=== PATIENT | female | born 1955 | race Caucasian/White ===

== ENCOUNTER → 2016-07-30 | Outpatient (CLI) | payer BC ==
[2016-07-30 16:05] VITALS: BP 111/69; PULSE 77; RESP 16; TEMP 97.7; BMI 30.9
--- NOTE | 2016-07-30 16:51 | P.HPBAR ---
Bariatric H&P - History & Physicial H&P Date: 07/30/16 History & Physicial: Visit/CC: lap band Patient initial contact: Initial weight: Initial weight in pounds: Height: 5 ft Initial BMI: Last weight: Current weight: 71.849 kg Current weight in pounds: 158.40 Current BMI: 30.9 [place] body weight (based on NIH guidelines): 45.359 kg Excess body weight loss: The patient is a 61 year-old F who presents for Bariatric Assessment. Patient presents today for LAP-BAND follow-up. He has LAP-BAND performed proximal 15 years ago. He has not been seen several years. The patient is traveling to [place] and wished to have his LAP-BAND emptied for his vacation. Past Medical History Past Medical History: Hypertension History of Any Multi-Drug Resistant Organisms: None Reported Past Surgical History: Appendectomy, Cholecystectomy, Hysterectomy Additional Past Surgical History / Comment(s): hysterectomy at age 31, cholecystectomy 2007, appendectomy at age 5, Additional Past Anesthesia/Blood Transfusion Reaction / Comm: no reported blood transfusions, Past Psychological History: No Psychological Hx Reported Smoking Status: Never smoker Past Alcohol Use History: None Reported Past Drug Use History: None Reported - Past Family History Father Family Medical History: Renal Disease Additional Family Medical History / Comment(s): at age 67 of renal failure Mother Family Medical History: Coronary Artery Disease (CAD), Diabetes Mellitus Additional Family Medical History / Comment(s): open heart sx 2000 to replace mitral valve; at age 83 Surgical - Exam Vital Signs Temp Pulse Resp BP 97.7 F 77 16 111/69 07/30/16 15:58 07/30/16 15:58 07/30/16 15:58 07/30/16 15:58 - General well developed, no distress - Eyes PERRL - ENT normal pinna - Neck no masses - Respiratory normal expansion - Cardiovascular Rhythm: regular - Abdomen Abdomen: soft, non tender Bariatric Assessment & Plan Plan: Patient LAP-BAND was empty. 1.9 mL was removed LAP-BAND. She will follow-up in one month after her vacation. Bariatric Checklist Checklist: Plan: Checklist: EGD: 1. Hiatal hernia: 2. H. Pylori: HgbA1c: Vitamin D: Smoking: Never smoker Primary care physician referral: Gi Ferrell Psychiatry clearance: Cardiology clearance: Sleep study: Diet journal: VTE risk score: VTE risk level: Rehab needs at discharge:
== END ==
LOC: BARWHC3 15:09
PROVIDERS: ATTEND Surgery
DX: Z48.815 Encounter for surgical aftercare following surgery on the digestive system (principal); Z98.84 Bariatric surgery status
CPT/HCPCS: 99212

== ENCOUNTER → 2016-09-10 | Outpatient (CLI) | payer BC ==
[2016-09-10 16:22] VITALS: BP 114/67; PULSE 63; RESP 16; TEMP 97.8; BMI 32.0
--- NOTE | 2016-09-10 16:35 | P.HPBAR ---
Bariatric H&P - History & Physicial H&P Date: 09/10/16 History & Physicial: Visit/CC: band fill Patient initial contact: Initial weight: Initial weight in pounds: Height: 5 ft Initial BMI: Last weight: 158.4 Current weight: 74.298 kg Current weight in pounds: 163.80 Current BMI: 32.0 [place] body weight (based on NIH guidelines): 45.359 kg Excess body weight loss: The patient is a 61 year-old F who presents for Bariatric Assessment. Patient presents today for lab band follow up. She has gained weight. Her LAP-BAND was emptied for her trip daily. Past Medical History Past Medical History: Hypertension History of Any Multi-Drug Resistant Organisms: None Reported Past Surgical History: Appendectomy, Cholecystectomy, Hysterectomy Additional Past Surgical History / Comment(s): hysterectomy at age 31, cholecystectomy 2007, appendectomy at age 5, Additional Past Anesthesia/Blood Transfusion Reaction / Comm: no reported blood transfusions, Smoking Status: Never smoker - Past Family History Father Family Medical History: Renal Disease Additional Family Medical History / Comment(s): at age 67 of renal failure Mother Family Medical History: Coronary Artery Disease (CAD), Diabetes Mellitus Additional Family Medical History / Comment(s): open heart sx 2000 to replace mitral valve; at age 83 Surgical - Exam Vital Signs Temp Pulse Resp BP 97.8 F 61 16 114/67 09/10/16 16:19 09/10/16 16:19 09/10/16 16:19 09/10/16 16:19 - General well developed - Abdomen Abdomen: soft, non tender Bariatric Assessment & Plan Plan: Patient's lap band was adjusted. She had 2 mL added to her band. She will require without difficulty. She'll follow-up in one month. Bariatric Checklist Checklist: Plan: Checklist: EGD: 1. Hiatal hernia: 2. H. Pylori: HgbA1c: Vitamin D: Smoking: Never smoker Primary care physician referral: Gi Ferrell Psychiatry clearance: Cardiology clearance: Sleep study: Diet journal: VTE risk score: VTE risk level: Rehab needs at discharge:
== END ==
LOC: BARWHC3 14:57
PROVIDERS: ATTEND Surgery
DX: Z48.815 Encounter for surgical aftercare following surgery on the digestive system (principal); Z98.84 Bariatric surgery status
CPT/HCPCS: 99212